=== PATIENT | male | born 1985 | race African-American/Black ===

== ENCOUNTER 2019-07-23 16:46 | Emergency (ER) | payer OTHER, SELFPAY ==
[2019-07-23] MEDS ORDERED: Adacel (T-DAP) 0.5 ML SYRINGE ONE (16:56)
== END 2019-07-23 17:12 | disposition home or self-care (01) ==
LOC: ERS 16:46
DX: S61.451A Open bite of right hand, initial encounter (principal); Z23 Encounter for immunization; W50.3XXA Accidental bite by another person, initial encounter
CPT/HCPCS: 90471; 90715

== ENCOUNTER 2021-03-12 17:21 | Inpatient (IN) | payer SELFPAY ==
[2021-03-12 19:15] LABS: #Basophils 0.1 thou/uL (0.0-0.2); #Eosinphils 0.1 thou/uL (0.0-0.7); #Lymphocytes 2.6 thou/uL (1.20-3.40); #Monocytes 0.4 thou/uL (0.11-0.59); #Neutrophils 2.8 thou/uL (1.40-6.50); %Basophils 1.2 % (0.0-1.0); %Eosinophils 1.6 % (0.0-10.0); %Lymphocytes 43.4 % (21.0-51.0); %Monocytes 6.4 % (0.0-10.0); %Neutrophils 47.4 % (42.0-75.0); Hemoglobin 15.5 g/dL (14.0-18.0); Mean Corpuscular HGB CONC 33.2 g/dL (32.0-36.0); Mean Corpuscular Hemoglobin 29.1 pg (27.0-31.0); Mean Corpuscular Volume 87.8 fL (78.0-98.0); Mean Platelet Volume 8.7 fL (7.4-10.4); Platelet Count 210 thou/uL (130-400); RBC Distribution Width 12.8 % (11.5-14.5); Red Blood Cell (RBC) Count 5.33 mill/uL (4.70-6.10)
[2021-03-12 19:34] LABS: ALT (SGPT) 19 U/L (8-55); AST (SGOT) 15 U/L (5-34); Albumin 4.4 g/dL (3.5-5.0); Alkaline Phosphatase 84 U/L (40-110); Anion Gap 13 mmol/L (10-20); BUN (Urea Nitrogen) 11 mg/dL (8.9-20.6); Bilirubin, Total 0.3 mg/dL (0.2-1.2); Calc. Creatinine Clearance 0 mL/min (70-130); Calcium 10.1 mg/dL (7.8-10.44); Carbon Dioxide 29 mmol/L (22-29); Chloride 103 mmol/L (98-107); Globulin 3.5 g/dL (2.4-3.5); Glucose 151 mg/dL (70-105); Potassium 3.8 mmol/L (3.5-5.1); Protein, Total 7.9 g/dL (6.0-8.3); Sodium 141 mmol/L (136-145)
[2021-03-12] MEDS ORDERED: Vancomycin 1 GM/200 ML BAG ONE (19:56)
[2021-03-12 21:02] VITALS: BMI 36.9
[2021-03-12] MEDS ORDERED: Morphine 4 MG/ML VIAL SLOW IVP PRN (21:48)
[2021-03-12 21:54] LABS: SARS-CoV-2 NAA Rapid Test Not Detected (NotDetected)
[2021-03-12] MEDS ORDERED: Ondansetron PF 4 MG/2 ML Vial IVP PRN (22:00)
[2021-03-12] MEDS ORDERED: Acetaminophen 325 MG TAB PO PRN (22:00)
[2021-03-12] MEDS ORDERED: Ondansetron ODT 4 MG TAB SL PRN (22:00)
[2021-03-12] MEDS ORDERED: hydrALAZINE 20 MG/ML VIAL SLOW IVP SCH (23:30)
[2021-03-13] MEDS ORDERED: Morphine 4 MG/ML VIAL SLOW IVP PRN (09:04)
[2021-03-13] MEDS ORDERED: Acetaminophen 325 MG TAB PO PRN (10:24)
[2021-03-13] MEDS ORDERED: Lidocaine 1% (PF) 30 ML VIAL ONE (10:53)
[2021-03-13] MEDS ORDERED: Amlodipine 10 MG TAB PO SCH (17:15)
[2021-03-13] MEDS ORDERED: cefTRIAXone\\ROCEPHIN 1 GM in Sodium Chloride 0.9% 100 ML IVPB SCH (17:15)
[2021-03-13 19:50] LABS: Hemoglobin A1c 5.8 % (4.0-6.0)
[2021-03-13] MEDS ORDERED: hydrALAZINE 25 MG TAB PO SCH (21:00)
[2021-03-14 06:56] LABS: #Basophils 0.1 thou/uL (0.0-0.2); #Eosinphils 0.1 thou/uL (0.0-0.7); #Lymphocytes 2.2 thou/uL (1.20-3.40); #Monocytes 0.4 thou/uL (0.11-0.59); #Neutrophils 1.7 thou/uL (1.40-6.50); %Basophils 1.2 % (0.0-1.0); %Eosinophils 2.1 % (0.0-10.0); %Lymphocytes 49.4 % (21.0-51.0); %Monocytes 8.4 % (0.0-10.0); %Neutrophils 38.9 % (42.0-75.0); Hemoglobin 15.7 g/dL (14.0-18.0); Mean Corpuscular HGB CONC 33.6 g/dL (32.0-36.0); Mean Corpuscular Hemoglobin 29.4 pg (27.0-31.0); Mean Corpuscular Volume 87.7 fL (78.0-98.0); Mean Platelet Volume 8.9 fL (7.4-10.4); Platelet Count 206 thou/uL (130-400); RBC Distribution Width 12.6 % (11.5-14.5); Red Blood Cell (RBC) Count 5.34 mill/uL (4.70-6.10); White Blood Cell (WBC) Count 4.4 thou/uL (4.8-10.8)
[2021-03-14 07:15] LABS: Anion Gap 11 mmol/L (10-20); BUN (Urea Nitrogen) 10 mg/dL (8.9-20.6); Calc. Creatinine Clearance 161 mL/min (70-130); Calcium 9.5 mg/dL (7.8-10.44); Carbon Dioxide 27 mmol/L (22-29); Chloride 103 mmol/L (98-107); Glucose 104 mg/dL (70-105); Potassium 4.1 mmol/L (3.5-5.1); Sodium 137 mmol/L (136-145)
[2021-03-14] MEDS ORDERED: Amlodipine 10 MG TAB PO SCH (09:00)
[2021-03-14] MEDS ORDERED: hydrALAZINE 25 MG TAB PO SCH (09:00)
[2021-03-14] MEDS ORDERED: Enoxaparin Sodium 40 MG/0.4 ML SYRINGE SC SCH (09:00)
[2021-03-14 12:11] VITALS: BP 149/103; TEMP 98
[2021-03-14] MEDS ORDERED: cefTRIAXone\\ROCEPHIN 1 GM in Sodium Chloride 0.9% 100 ML IVPB SCH (18:00)
== END 2021-03-14 14:14 | disposition home or self-care (01) | DRG 580 ==
LOC: ERS 17:21 → SJJU 20:26 → OBSVTOIN 03-13 15:54
PROVIDERS: ADMIT Orthopaedic Surgery; ATTEND Orthopaedic Surgery
PROC: 0JBK0ZZ Excision of Left Hand Subcutaneous Tissue and Fascia, Open Approach (ICD-10-PCS; principal; 2021-03-13)
DX: L03.012 Cellulitis of left finger (principal); N17.9 Acute kidney failure, unspecified; Z20.822 Contact with and (suspected) exposure to COVID-19; F17.210 Nicotine dependence, cigarettes, uncomplicated; I10 Essential (primary) hypertension; E66.9 Obesity, unspecified; R73.9 Hyperglycemia, unspecified; Z68.36 Body mass index [BMI] 36.0-36.9, adult
CPT/HCPCS: 36415; 80048; 80053; 83036; 85025; 85652; 86140; 87070; 87205; 96365; 96375; G0378; J0696; J1650; J2001; J2270; J3370; J3490; U0002

== ENCOUNTER 2022-09-06 20:32 | Emergency (ER) | payer OTHER, MEDICAID ==
[2022-09-06] MEDS ORDERED: Cyclobenzaprine 10 MG TAB ONE (21:56)
== END 2022-09-06 22:22 | disposition home or self-care (01) ==
LOC: ERS 20:32
DX: S16.1XXA Strain of muscle, fascia and tendon at neck level, initial encounter (principal); F17.200 Nicotine dependence, unspecified, uncomplicated; V49.9XXA Car occupant (driver) (passenger) injured in unspecified traffic accident, initial encounter
CPT/HCPCS: 99283